=== PATIENT | female | born 1980 ===

== ENCOUNTER 2017-07-29 18:31 | Emergency (ER) | payer OTHER ==
[~2017-07-29] VITALS: Ht 160 cm; Wt 71.0 kg
[2017-07-29] MEDS ORDERED: PROCHLORPERAZINE 5 MG/ML, 2ML ONE (18:57)
[2017-07-29] MEDS ORDERED: DIPHENHYDRAMINE 50 MG/ML, 1ML ONE (18:57)
[2017-07-29] MEDS ORDERED: KETOROLAC 30 MG/1 ML ONE (18:57)
[2017-07-29] MEDS ORDERED: SODIUM CHLORIDE FLUSH 10ML SYR IVF ONE (19:00)
[2017-07-29] MEDS ORDERED: DIPHENHYDRAMINE 50 MG/ML, 1ML IVPush ONE (19:00)
[2017-07-29] MEDS ORDERED: SODIUM CHLORIDE 0.9% 1,000ML IVBOLUS ONE (19:00)
[2017-07-29] MEDS ORDERED: PROCHLORPERAZINE 5 MG/ML, 2ML IVPush ONE (19:00)
[2017-07-29] MEDS ORDERED: KETOROLAC 30 MG/1 ML IVPush ONE (19:00)
[2017-07-29] MEDS ORDERED: LORazepam 2 MG/ML, 1ML ONE (19:23)
[2017-07-29] MEDS ORDERED: LORazepam 2 MG/ML, 1ML IVPush ONE (19:30)
[2017-07-29 19:47] VITALS: BP 158/67
== END 2017-07-29 19:56 | disposition home or self-care (01) ==
LOC: ED 19:50
DX: R51 Headache (principal); M32.9 Systemic lupus erythematosus, unspecified; K21.9 Gastro-esophageal reflux disease without esophagitis; Z88.0 Allergy status to penicillin; Z88.1 Allergy status to other antibiotic agents
CPT/HCPCS: 96361; 96374; 96375; 99284; J0780; J1200; J1885; J2060; J7030